=== PATIENT | female | born 1975 | race Hispanic/Latino ===

== ENCOUNTER → 2018-03-26 | Outpatient (CLI) | payer BC | LOC: M RAD 07:03 | DX: J32.9 Chronic sinusitis, unspecified (principal) | CPT/HCPCS: 70486 ==

== ENCOUNTER → 2019-11-18 | Outpatient (CLI) | payer SELFPAY | LOC: M LABSMTC 14:04 | PROVIDERS: ATTEND Pediatrics | DX: Z20.828 Contact with and (suspected) exposure to other viral communicable diseases (principal); Z11.59 Encounter for screening for other viral diseases ==

== ENCOUNTER → 2020-06-17 | Outpatient (CLI) | payer BC ==
--- NOTE | 2020-06-17 18:32 | REP ---
INDICATION: NEOPLASM OF UNCERTAIN BEHAVIOR OF SKIN COMPARISON: None. TECHNIQUE: AP, Marcy's, Perez, and bilateral lateral views of the skull. FINDINGS: Calvarium and facial bones are intact and normal. No sclerotic, lytic, or blastic lesions are identified. No evidence for acute or healed fracture. Surrounding soft tissues are grossly unremarkable. IMPRESSION: No abnormality appreciated by radiographic evaluation. <Electronically signed by Josep Brand > 06/17/20 [id number]
== END ==
LOC: M RAD 11:51
PROVIDERS: ATTEND Plastic Surgery Surgery of the Hand
DX: D48.5 Neoplasm of uncertain behavior of skin (principal)

== ENCOUNTER → 2020-08-05 | Outpatient (CLI) | payer BC ==
[~2020-08-05] MED LIST: ACET-838 PO; FLON1SPR; IBUP200C25 PO; SERT25TA85 PO; VITA200016 PO
== END ==
LOC: M LABSMTC 10:03
PROVIDERS: ATTEND Anesthesiology
DX: Z01.812 Encounter for preprocedural laboratory examination (principal); Z20.822 Contact with and (suspected) exposure to COVID-19

== ENCOUNTER 2020-08-10 06:17 | Day surgery (SDC) | payer BC ==
[~2020-08-10] VITALS: Ht 170.2 cm; Wt 62.1 kg
[~2020-08-10 06:17] MED LIST changes: -ACET-838 PO; +ACET32TAB PO
[2020-08-10] MEDS ORDERED: BENA25CA4 PO (06:43)
[2020-08-10] MEDS ORDERED: ceFAZolin SOD 1 GM in D5W MINI-BAG PLUS 50 ML IV ONE (07:00)
[2020-08-10] MEDS ORDERED: LR 1,000 ML IV ONE (07:00)
[2020-08-10] MEDS ORDERED: BACITRACIN OINTMENT 30GM TUBE As Ordered ONE (07:11)
[2020-08-10] MEDS ORDERED: LIDOCAINE 2% W/EPINEPHRINE 20ML VIAL **PRES FREE As Ordered ONE (07:11)
[2020-08-10] MEDS ORDERED: POVIDONE-IODINE 5% OPHTH PREP SOL 30ML As Ordered ONE (07:11)
[2020-08-10] MEDS ORDERED: propofoL 200 MG/20 ML VIAL As Ordered ONE (07:19)
[2020-08-10] MEDS ORDERED: LIDOCAINE 2% 100MG/5ML SDV (FOR ANES.) As Ordered ONE (07:19)
[2020-08-10] MEDS ORDERED: MIDAZOLAM INJ 2MG/2ML VIAL (J2250 PER 1MG) As Ordered ONE (07:19)
[2020-08-10] MEDS ORDERED: fentaNYL 100 MCG/2 ML INJECTION (J3010) As Ordered ONE (07:20)
[2020-08-10] MEDS ORDERED: SCOPOLAMINE 1MG TRANSDERMAL PATCH As Ordered ONE (07:34)
[2020-08-10] MEDS ORDERED: SCOPOLAMINE 1MG TRANSDERMAL PATCH TOP ONE (07:35)
[2020-08-10] MEDS ORDERED: dexameTHASONE 4 MG/ML 1ML VIAL (J1100 PER 1MG) As Ordered ONE (07:37)
[2020-08-10] MEDS ORDERED: ONDANSETRON 4MG/2ML VIAL As Ordered ONE (07:37)
[2020-08-10] MEDS ORDERED: LACRILUBE (AKWA TEARS) OPHTH OINT 3.5 GM As Ordered ONE (07:48)
[2020-08-10] MEDS ORDERED: GLYCOPYRROLATE INJ 0.2 MG/ML 2 ML VIAL As Ordered ONE (07:48)
[2020-08-10] MEDS ORDERED: ePHEDrine SULFATE 25 MG/5 ML(5MG/ML) SYRINGE As Ordered ONE (08:04)
[2020-08-10] MEDS ORDERED: ACETAMINOPHEN 1000MG 100ML IV BTL (OFIRMEV) (J0131 PER 10MG) As Ordered ONE (08:08)
--- NOTE | 2020-08-10 08:49 | ROOPDOC ---
[facility] Report Of Operation Report of Operation DATE OF PROCEDURE: 08/10/20 PREOPERATIVE DIAGNOSIS: Right forehead mass POSTOPERATIVE DIAGNOSIS: same FINDINGS: bony mass right upper forehead PROCEDURE: Excision right upper forehead mass. SURGEON: Dr Subramanian ANESTHESIA: General SPECIMENS: right forehead mass ESTIMATED BLOOD LOSS: 1 cc REPLACED: none DRAINS: none COMPLICATIONS: none POSTOPERATIVE CONDITION: stable This is a 45 year-old male with palpable mass right upper forehead. She has intermittent pressure from the mass. It is palpable, sized she 2 cm. slow growing. Mass identified as a bone structure on the forehead on x-ray. Patient wishes to have it removed. Risks, benefits, and alternatives discussed with the patient. She is ready to proceed. After obtaining informed consent patient brought into the operating room, placed in supine position, perioperative antibiotics given, sequential stockings placed in the lower calves, general anesthesia induced. She was prepped and draped in the usual sterile fashion. 2% lidocaine with epinephrine was infiltrated in the area. Incision carried out through the most superior portion of the mass along the hairline. Sharp and blunt dissection along frontalis muscle fibers was done until bony mass identified. Adhesions divided using Metzenbaum scissors. The mass is completely submuscular, smooth. He used 8 mm chisel and mallet to remove the bone followed by a rasp to smooth out the edges. Minimal bleeding was encountered. After the smoothness and symmetry was assured, muscle edges were reapproximated with 4-0 Vicryl sutures. Wound is approximated in layers with 4-0, 5-0 Monocryl sutures. Steri-Strip applied to skin. Pressure dressing applied as well. Patient extubated in operating room, tolerated procedure well, and transferred to recovery room in stable condition. DELIO SUBRAMANIAN DO Aug 10, 2020 08:49
--- NOTE | 2020-08-10 08:49 | POST-OPPD ---
Postoperative Procedure Note Date Of Procedure: Aug 10, 2020 PREOPERATIVE DIAGNOSIS: Right forehead mass POSTOPERATIVE DIAGNOSIS: same FINDINGS: bony mass right upper forehead PROCEDURE: Excision right upper forehead mass. SURGEON: Dr Subramanian ANESTHESIA: General SPECIMENS: right forehead mass ESTIMATED BLOOD LOSS: 1 cc REPLACED: none DRAINS: none COMPLICATIONS: none POSTOPERATIVE CONDITION: stable DELIO SUBRAMANIAN DO Aug 10, 2020 08:49
[2020-08-10] MEDS ORDERED: OXYC1TAB23 PO (08:54)
[2020-08-10] MEDS ORDERED: oxyCODONE 5MG TAB PO PRN (09:25)
[2020-08-10] MEDS ORDERED: fentaNYL 100 MCG/2 ML INJECTION (J3010) IV PRN (09:25)
[2020-08-10] MEDS ORDERED: LR 1,000 ML IV SCH (09:25)
[2020-08-10 10:40] VITALS: BP 121/63
== END 2020-08-10 10:50 | disposition home or self-care (01) ==
LOC: M SDC 06:17
PROVIDERS: ATTEND Plastic Surgery Surgery of the Hand
DX: D16.4 Benign neoplasm of bones of skull and face (principal); F41.9 Anxiety disorder, unspecified; R06.83 Snoring; Z79.899 Other long term (current) drug therapy
CPT/HCPCS: 21026; 81025; 88305; J0131; J0690; J1100; J2250; J2405; J3010

== ENCOUNTER → 2021-03-04 | Outpatient (CLI) | payer SELFPAY ==
[~2021-03-04] MED LIST changes: +BENA25CA4 PO; +OXYC1TAB23 PO
== END ==
LOC: M LABSMTC 11:55
PROVIDERS: ATTEND Pediatrics
DX: Z11.52 Encounter for screening for COVID-19 (principal); Z20.822 Contact with and (suspected) exposure to COVID-19

== ENCOUNTER → 2021-05-13 | Outpatient (CLI) | payer SELFPAY | LOC: M LABSMTC 11:18 | PROVIDERS: ATTEND Anesthesiology | DX: Z01.812 Encounter for preprocedural laboratory examination (principal); Z20.822 Contact with and (suspected) exposure to COVID-19 ==

== ENCOUNTER 2021-05-18 11:56 | Day surgery (SDC) | payer BC ==
[~2021-05-18] VITALS: Ht 170.2 cm; Wt 63.5 kg
[~2021-05-18 11:56] MED LIST changes: +LIDOCAINE 1% MDV 20ML VIAL SQ PRN; +LR 1,000 ML IV ONE; +PERC5TAB12 PO; +ceFAZolin SOD 2 GM in IV 1 EA IV ONE
[2021-05-18] MEDS ORDERED: propofoL 200 MG/20 ML VIAL As Ordered ONE (12:52)
[2021-05-18] MEDS ORDERED: LIDOCAINE 2% 100MG/5ML SDV (FOR ANES.) As Ordered ONE (12:52)
[2021-05-18] MEDS ORDERED: ROCURONIUM BROMIDE 50 MG/5 ML VIAL As Ordered ONE ×3 (12:52→15:37)
[2021-05-18] MEDS ORDERED: MIDAZOLAM INJ 2MG/2ML VIAL (J2250 PER 1MG) As Ordered ONE (12:53)
[2021-05-18] MEDS ORDERED: fentaNYL 250 MCG/5 ML INJECTION (J3010) As Ordered ONE (12:53)
[2021-05-18 12:54] LABS: HEMATOCRIT 37.6 % (36.0-47.0); HEMOGLOBIN 12.7 g/dl (12.0-15.5); MEAN CORPUSCULAR HEMOGLOBIN 31.3 pg (27.0-33.0); MEAN CORPUSCULAR HGB CONC 33.8 g/dl (32.0-36.5); MEAN CORPUSCULAR VOLUME 92.6 fl (80.0-96.0); PLATELET COUNT, AUTOMATED 281 10^3/uL (150-450); RED BLOOD COUNT 4.06 10^6/uL (4.00-5.40); WHITE BLOOD COUNT 7.3 10^3/uL (4.0-10.0)
[2021-05-18 13:24] LABS: BLOOD UREA NITROGEN 11 MG/DL (7-18); CALCIUM LEVEL 8.8 MG/DL (8.5-10.1); CARBON DIOXIDE LEVEL 26 MEQ/L (21-32); CHLORIDE LEVEL 108 MEQ/L (98-107); GLOMERULAR FILTRATION RATE > 60.0 (>58); GLUCOSE, FASTING 90 MG/DL (70-100); POTASSIUM SERUM 4.5 MEQ/L (3.5-5.1); SODIUM LEVEL 138 MEQ/L (136-145)
[2021-05-18] MEDS ORDERED: BUPIVACAINE/EPIN 0.5% 30 ML VIAL As Ordered ONE (13:26)
[2021-05-18] MEDS ORDERED: SCOPOLAMINE 1MG TRANSDERMAL PATCH As Ordered ONE (13:41)
[2021-05-18] MEDS ORDERED: FLUORESCEIN 10% (100MG/ML) 5 ML VIAL As Ordered ONE (13:41)
[2021-05-18] MEDS ORDERED: dexameTHASONE 4 MG/ML 1ML VIAL (J1100 PER 1MG) As Ordered ONE ×2 (13:55→15:43)
[2021-05-18] MEDS ORDERED: METOCLOPRAMIDE INJ 10MG/2ML VIAL (J2765 PER 1) As Ordered ONE (14:11)
[2021-05-18] MEDS ORDERED: ONDANSETRON 4MG/2ML VIAL As Ordered ONE (14:11)
[2021-05-18] MEDS ORDERED: ACETAMINOPHEN 1000MG 100ML IV BTL (OFIRMEV) (J0131 PER 10MG) As Ordered ONE (14:11)
[2021-05-18] MEDS ORDERED: KETOROLAC 60MG 2ML VIAL As Ordered ONE (14:11)
[2021-05-18] MEDS ORDERED: ePHEDrine SULFATE 25 MG/5 ML(5MG/ML) SYRINGE As Ordered ONE (14:15)
[2021-05-18] MEDS ORDERED: fentaNYL 100 MCG/2 ML INJECTION (J3010) As Ordered ONE (15:12)
[2021-05-18] MEDS: fentaNYL 100 MCG/2 ML INJECTION (J3010) IV PRN ×4 (15:12→15:43)
[2021-05-18] MEDS ORDERED: MEPERIDINE INJ 25 MG/ML VIAL (J2175) As Ordered ONE (15:17)
[2021-05-18] MEDS: MEPERIDINE INJ 25 MG/ML VIAL (J2175) IV PRN ×2 (15:18→15:25)
[2021-05-18] MEDS ORDERED: METOCLOPRAMIDE INJ 10MG/2ML VIAL (J2765 PER 1) IV PRN (15:40)
[2021-05-18] MEDS ORDERED: ONDANSETRON 4MG/2ML VIAL IV PRN (15:40)
[2021-05-18] MEDS ORDERED: HYDROMORPHONE HCL 0.5 MG/ 0.5 ML SYRINGE (J1170 PER 1) IV PRN (15:40)
[2021-05-18] MEDS ORDERED: LR 1,000 ML IV SCH (15:40)
[2021-05-18] MEDS ORDERED: oxyCODONE 5MG TAB PO PRN (15:40)
[2021-05-18 17:40] VITALS: BP 140/72
== END 2021-05-18 17:55 | disposition home or self-care (01) ==
LOC: M SDC 11:56
PROVIDERS: ATTEND Obstetrics & Gynecology
DX: D25.1 Intramural leiomyoma of uterus (principal); D25.2 Subserosal leiomyoma of uterus; N72 Inflammatory disease of cervix uteri; R10.2 Pelvic and perineal pain
CPT/HCPCS: 36415; 58552; 80048; 81025; 85027; 86850; 86900; 86901; 88307; J0131; J0690; J1100; J1885; J2175; J2250; J2405; J2765; J3010

== ENCOUNTER → 2021-08-03 | Outpatient (REF) | payer BC ==
[~2021-08-03] MED LIST changes: -LIDOCAINE 1% MDV 20ML VIAL SQ PRN; -LR 1,000 ML IV ONE; -ceFAZolin SOD 2 GM in IV 1 EA IV ONE
[2021-08-05 05:11] LABS: MUMPS VIRUS IgG ANTIBODY 23.8 AU/mL (Immune >10.9)
== END ==
LOC: M LAB REF 16:23
PROVIDERS: ATTEND Family Medicine
DX: Z02.1 Encounter for pre-employment examination (principal)

== ENCOUNTER → 2022-03-02 | Outpatient (REF) ==
[2022-03-02 11:27] LABS: RSV AMPLIFICATION NEGATIVE (NEGATIVE)
== END ==
LOC: M LABSMTC 09:52
PROVIDERS: ATTEND Family Medicine
DX: Z11.52 Encounter for screening for COVID-19 (principal)

== ENCOUNTER → 2022-04-12 | Outpatient (CLI) | payer BC | LOC: M WHC 07:26 | PROVIDERS: ATTEND Obstetrics & Gynecology | DX: Z12.31 Encounter for screening mammogram for malignant neoplasm of breast (principal) ==

== ENCOUNTER 2022-10-12 08:20 | Day surgery (SDC) | payer BC ==
[~2022-10-12] VITALS: Ht 170.2 cm; Wt 63.5 kg
[~2022-10-12 08:20] MED LIST changes: +NS 1,000 ML IV ONE
[2022-10-12] MEDS ORDERED: propofoL 200 MG/20 ML VIAL As Ordered ONE (08:37)
[2022-10-12] MEDS ORDERED: LIDOCAINE 2% 100MG/5ML SDV (FOR ANES.) As Ordered ONE (08:37)
[2022-10-12 10:03] VITALS: TEMP 98.1
[2022-10-12 10:17] VITALS: BP 120/59
== END 2022-10-12 10:31 | disposition home or self-care (01) ==
LOC: M OPP 08:20
PROVIDERS: ATTEND Surgery
DX: Z12.11 Encounter for screening for malignant neoplasm of colon (principal); K63.5 Polyp of colon; F41.9 Anxiety disorder, unspecified; F32.A Depression, unspecified; F17.210 Nicotine dependence, cigarettes, uncomplicated; Z79.899 Other long term (current) drug therapy; Z83.71 Family history of colonic polyps

== ENCOUNTER → 2023-01-19 | Outpatient (REF) ==
[~2023-01-19] MED LIST changes: -NS 1,000 ML IV ONE
== END ==
LOC: M EMP 09:12
PROVIDERS: ATTEND Family Medicine
DX: Z11.52 Encounter for screening for COVID-19 (principal)

== ENCOUNTER → 2023-04-13 | Outpatient (CLI) | payer BC | LOC: M WHC 07:06 | PROVIDERS: ATTEND Obstetrics & Gynecology | DX: Z12.31 Encounter for screening mammogram for malignant neoplasm of breast (principal) ==

== ENCOUNTER → 2024-03-10 | Outpatient (REF) | LOC: M EMP 07:42 | PROVIDERS: ATTEND Family Medicine | DX: Z11.52 Encounter for screening for COVID-19 (principal) ==

== ENCOUNTER → 2024-09-01 | Outpatient (REF) | payer BC ==
[2024-09-01 14:04] LABS: FOLLICLE STIMULATING HORMONE 88.4 mIU/ML; LUTEINIZING HORMONE 63.5 mIU/ML
[2024-09-01 14:05] LABS: ESTRADIOL 116.2 PG/ML
== END ==
LOC: M LAB REF 12:20
PROVIDERS: ATTEND Family Medicine
DX: N95.1 Menopausal and female climacteric states (principal)